=== PATIENT | male | born 1940 | race Caucasian/White ===

== ENCOUNTER 2021-07-23 12:56 | Outpatient (CLI) | payer OTHER, SELFPAY ==
--- NOTE | 2021-07-23 13:32 | XR_ITS ---
WS: [id number] Exam: XR cervical spine fl/ex [id number] Date/Time of Exam: 07/23/2021 1:32 PM Reason For Exam: CERVICALGIA No acute fracture or dislocation. 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 Facet DJD at all levels. Mild degenerative anterolisthesis of C3 on C4 and C4 on C5. No flexion or extension in stability. Normal paraspinal soft tissues. XR/XR cervical spine fl/ex [id number] IMPRESSION: 1. Moderately advanced degenerative changes. No acute fracture or dislocation. 2. No significant flexion or extension instability.
== END 2021-07-23 12:57 | disposition home or self-care (01) ==
PROVIDERS: Visit Provider Anesthesiology Pain Medicine
DX: M54.2 Cervicalgia (principal); M47.892 Other spondylosis, cervical region
CPT/HCPCS: 72040

== ENCOUNTER 2021-07-31 15:16 | Outpatient (CLI) | payer OTHER, SELFPAY ==
--- NOTE | 2021-07-31 15:15 | MR_ITS ---
WS: [id number] MRI CERVICAL SPINE NONCONTRAST TECHNIQUE: Sagittal T1, T2 and STIR imaging. Axial T2, gradient, and fiesta imaging. CLINICAL INFORMATION: CERVICALGIA COMPARISON: None. FINDINGS: Straightening of the normal cervical lordosis. Cord signal is normal. No high-grade central canal zuleyma nosis. Mild spondylitic changes. C2-C3: Mild LEFT and no significant RIGHT foraminal narrowing. Mild facet arthropathy. Spinal canal i s patent. C3-C4: Mild disc osteophyte complex with endplate ridging. Moderate facet arthropathy. Moderate to se stacy LEFT and mild RIGHT bony foraminal narrowing. Spinal canal is patent. C4-C5: Disc osteophyte complex with endplate ridging. Moderate to severe LEFT bony foraminal narrowin g. Moderate facet arthropathy. C5-C6: Disc osteophyte complex with endplate ridging. Moderate to severe RIGHT and moderate LEFT bony foraminal narrowing. Moderate facet arthropathy. Spinal canal is patent. C6-C7: Disc osteophyte complex with endplate ridging. Moderate bilateral bony foraminal narrowing. Mo derate facet arthropathy. C7-T1: Slight anterolisthesis C7 on T1. Mild LEFT and no significant RIGHT foraminal narrowing. Spina l canal is patent. Retention cysts in the sphenoid sinuses. MR/MR cervical spin wo con* [id number] IMPRESSION: 1. Straightening of the normal cervical lordosis with mild spondylitic changes . Cord signal is normal. 2. Multilevel moderate to severe bony foraminal narrowing worse at LEFT C3-C4, LEFT C4-C5, and bilateral C5-C6. 3. Moderate bilateral bony foraminal narrowing C6-C7. Mild central canal steno sis at this level due to disc osteophyte complex with shallow central protrusio n. 4. Multilevel moderate facet arthropathy described above.
== END 2021-07-31 15:17 | disposition home or self-care (01) ==
LOC: RAD 15:18
PROVIDERS: Visit Provider Anesthesiology Pain Medicine
DX: M48.02 Spinal stenosis, cervical region (principal); M54.2 Cervicalgia
CPT/HCPCS: 72141

== ENCOUNTER → 2021-12-11 14:41 | Outpatient (BNVA) | payer OTHER, SELFPAY | PROVIDERS: Referring Provider Family Medicine; Visit Provider Orthopaedic Surgery | DX: M47.22 Other spondylosis with radiculopathy, cervical region (principal) | CPT/HCPCS: 99204 ==